=== PATIENT | male | born 1985 | race Caucasian/White ===

== ENCOUNTER 2016-06-01 21:16 | Emergency (ER) | payer OTHER, MEDICARE ==
[~2016-06-01] VITALS: Ht 190.5 cm; Wt 156.5 kg
[~2016-06-01 21:16] MED LIST: ABILIFY 10 MG10 MG; ABILIFY 5MG5 MG; COLACE100 MG PO; ZOFRAN ODT4 MG PO; ZYPREXA10 MG PO
[2016-06-01 22:12] LABS: ABSOLUTE BASOPHIL COUNT 0.1 /CUMM (0.0-0.2); ABSOLUTE EOSINOPHIL COUNT 0.1 /CUMM (0.0-0.7); ABSOLUTE GRANULOCYTE CT 10.7 /CUMM (1.4-6.5); ABSOLUTE LYMPH COUNT 2.9 /CUMM (1.2-3.4); ABSOLUTE MONOCYTE COUNT 0.9 /CUMM (0.10-0.60); BASOPHIL % 0.6 % (0.0-2.0); EOSINOPHIL % 0.6 % (0-5); GRANULOCYTE % 73.1 % (42.2-75.2); MEAN CORPUSCULAR HGB 28.6 PG (27.0-31.0); MEAN CORPUSCULAR VOLUME 84.1 FL (80.0-94.0); MEAN PLATELET VOLUME 7.6 FL (7.4-10.4); PLATELET COUNT 276 /CUMM (130-400); RBC DISTRIBUTION WIDTH 13.1 % (11.5-14.5); RED BLOOD CELL CT 5.82 /CUMM (4.70-6.10); WHITE BLOOD CELL COUNT 14.6 /CUMM (4.8-10.8)
--- NOTE | 2016-06-01 22:32 | ED GI/GU/ABDOMINAL COMPLAINT ---
See Addendum History of Present Illness General Chief Complaint: General Adult Stated Complaint: N/V, UNABLE TO TAKE ANY DAILY MEDS Source: patient Exam Limitations: no limitations Vital Signs & Intake/Output Vital Signs & Intake/Output Vital Signs Date Time Temp Pulse Resp B/P Pulse O2 O2 Flow FiO2 Ox Delivery Rate 06/02 1209 97.0 63 18 152/79 98 Room Air 06/02 0943 97.0 84 20 157/80 100 Room Air 06/02 0504 97.9 75 16 162/99 97 Room Air 06/01 2344 100.2 74 20 137/72 99 Room Air 06/01 2132 99.1 90 20 142/89 98 Room Air ED Intake and Output 06/02 0000 06/01 1200 Intake Total Output Total Balance Patient 345 lb Weight Allergies Coded Allergies: cefaclor (From CECLOR) (Mild, RASH 06/01/16) divalproex sodium (From DEPAKOTE) ("PANCREATITIS" 06/01/16) Reconcile Medications Aripiprazole (Abilify) (Unknown Strength) TAB (Unknown Dose) UNKNOWN ( Reported) Aripiprazole (Abilify) (Unknown Strength) TAB (Unknown Dose) UNKNOWN ( Reported) Docusate Sodium (Colace) 100 MG SGL 1 CAP PO BID CONSTIPATION Olanzapine (Zyprexa) 10 MG TAB 1 TAB PO BID SCHIZOAFFECTIVE Ondansetron (Zofran Odt) 4 MG ODT 1 TAB PO Q8P PRN NAUSEA Triage Note: TRIAGE: PT TO ER WITH MOTHER C/C N/V SINCE MONDAY. HAS NOT BEEN ABLE TO TAKE REGULAR MEDICATIONS SINCE MONDAY FOR BIPOLAR, SCHIZOAFFECTIVE D/O AND DIABETES. HAS TOLERATED SOME WATER AND GATORADE BUT HAS NOT TOLERATED ANY SOLIDS. F/S 135 AT 18:[address]W DR WILEY TODAY. Triage Nurses Notes Reviewed? yes Onset: Abrupt Duration: day(s): (4-5), constant, continues in ED Timing: recent history Quality/Severity: moderate No Modifying Factors: none HPI: 31-year-old male comes into the emergency room for further evaluation of nausea vomiting has been going on for the past 4-5 days. Patient reports that since she's been vomiting. Some mild abdominal pain. Denies any urinary symptoms. Patient reports she is diabetic and hasn't taken his medication because he's been vomiting. Denies any changes in bowel movement. Nothing seems to make symptoms better or worse. (NESTOR FOREMAN) Past History Travel History Traveled to [place] past 21 day No Medical History Any Pertinent Medical History? see below for history Neurological: NONE EENT: NONE Cardiovascular: NONE Respiratory: NONE Gastrointestinal: NONE Hepatic: NONE Renal: NONE Musculoskeletal: NONE Psychiatric: bipolar disease, schizophrenia Endocrine: diabetes, diabetic ketoacidosis Blood Disorders: NONE Cancer(s): TESTICULAR CANCER EXTENSION AGENT/Reproductive: NONE Surgical History Surgical History: non-contributory Psychosocial History Who do you live with Patient/Self Services at Home NONE What is your primary language Japanese Tobacco Use: Quit >30 days ago ETOH Use: denies use Illicit Drug Use: marijuana Family History Hx Contributory? No (NESTOR FOREMAN) Review of Systems Review of Systems Constitutional: Reports: no symptoms. EENTM: Reports: no symptoms. Respiratory: Reports: no symptoms. Cardiovascular: Reports: no symptoms. GI: Reports: see HPI. Genitourinary: Reports: no symptoms. Musculoskeletal: Reports: no symptoms. Skin: Reports: no symptoms. Neurological/Psychological: Reports: no symptoms. Hematologic/Endocrine: Reports: no symptoms. Immunologic/Allergic: Reports: no symptoms. All Other Systems: Reviewed and Negative (NESTOR FOREMAN) Physical Exam Physical Exam General Appearance: well developed/nourished, no apparent distress, alert Head: atraumatic, normal appearance Eyes: Bilateral: normal appearance. Ears, Nose, Throat, Mouth: hearing grossly normal, moist mucous membrane Neck: normal inspection, full range of motion Respiratory: normal breath sounds, no respiratory distress Cardiovascular: regular rate/rhythm Gastrointestinal: soft, tenderness (mild RUQ) Back: normal inspection Extremities: normal range of motion Neurologic/Psych: awake, alert, oriented x 3, normal gait, FLAT AFFECT Skin: intact, normal color Core Measures ACS in differential dx? No Severe Sepsis Present: No Septic Shock Present: No (NESTOR FOREMAN) Physical Exam Gastrointestinal: tenderness (MERLINE LEWIS,MIKE Linares) Progress Differential Diagnosis: appendicitis, biliary colic, bowel obstruction, cholecystitis, diverticulitis, gastritis, hepatitis, pancreatitis, prostatitis, peptic ulcer, perforated viscous, pyelonephritis, urinary retention, urethritis, UTI/pyelo Plan of Care: Orders Procedure Date/time Status Regular Diet 06/02 B Active URINE DRUG SCREEN FOR ER ONLY 06/02 0151 Complete ED CRISIS PSYCH CONSULT 06/02 0016 Active Add-on Test (ER Only) 06/02 2303 Active LIPASE 06/02 2203 Complete AMYLASE 06/02 2203 Complete COMPREHENSIVE METABOLIC PANEL 06/02 2143 Complete CBC WITHOUT DIFFERENTIAL 06/02 2143 Complete Laboratory Tests 06/02/16 0921: Urine Opiates Screen < 100.00, Methadone Screen 71, Barbiturate Screen 233 H, Ur Phencyclidine Scrn < 6.00, Amphetamines Screen < 100, U Benzodiazepines Scrn 125, Urine Cocaine Screen < 50, Urine Cannabis Screen > 80.00 H 06/01/162203: Anion Gap 16, Estimated GFR > 60, BUN/Creatinine Ratio 11.7, Glucose 103 H, Calcium 9.9, Total Bilirubin 0.8, AST 21, ALT 41, Alkaline Phosphatase 65, Total Protein 8.2, Albumin 5.1 H, Globulin 3.1, Albumin/Globulin Ratio 1.6, Amylase < 30 L, Lipase 81, CBC w Diff NO MAN DIFF REQ, RBC 5.82, MCV 84.1, MCH 28.6, RDW 13.1, MPV 7.6, Gran % 73.1, Lymphocytes % 19.7 L, Monocytes % 6.0, Eosinophils % 0.6, Basophils % 0.6, Absolute Granulocytes 10.7 H, Absolute Lymphocytes 2.9, Absolute Monocytes 0.9 H, Absolute Eosinophils 0.1, Absolute Basophils 0.1, PUBS MCHC 34.0 Diagnostic Imaging: Viewed by Me: CT Scan. Discussed w/RAD: CT Scan. Radiology Impression: EXAM TYPE: CAT - CT ABD & PELVIS W/O IV CONTRAS EXAMINATION: CT ABDOMEN AND PELVIS WITHOUT CONTRAST CLINICAL INFORMATION: Question cholecystitis. Right upper quadrant abdominal pain. Elevated white blood cell count. COMPARISON: CT scan of the abdomen and pelvis 06/01/2015. TECHNIQUE: Multidetector volumetric imaging was performed from the superior aspect of the liver through the pubic symphysis. Sagittal and coronal reformatted images were obtained on the technologist's workstation. DLP: 1597.88 mGy-cm FINDINGS: LUNG BASES: Lung bases are clear. There is no pleural or pericardial effusion. LIVER, GALLBLADDER, AND BILIARY TREE: The liver is normal in size, shape, and attenuation. No focal hepatic lesion or biliary ductal dilatation is present. Relatively hyperdense sludge layers within an otherwise unremarkable gallbladder. Grossly there is no evidence of intrahepatic or extrahepatic biliary ductal dilatation. PANCREAS: Unremarkable. SPLEEN: Unremarkable. ADRENAL GLANDS: Unremarkable. KIDNEYS AND URETERS: The kidneys are normal in size, shape, and attenuation. No hydronephrosis, hydroureter, or calculi seen. No perinephric stranding. BLADDER: Unremarkable. GASTROINTESTINAL TRACT: The small and large bowel are unremarkable. The appendix is unremarkable. ABDOMINAL WALL: No significant hernia is appreciated. LYMPH NODES: Normal. VASCULAR: The unenhanced abdominal aorta and inferior vena cava are unremarkable. PELVIC VISCERA: Unremarkable. OSSEOUS STRUCTURES: There is no worrisome lytic or blastic osseous lesion. A prominent central disc osteophyte complex at T10-T11 is redemonstrated causing indentation of the ventral thecal sac and at least moderate canal stenosis at this level. IMPRESSION: No abnormal finding to provide an explanation for the patient's right upper quadrant abdominal pain. There is hyperdense sludge layers within the gallbladder however there are no overt pericholecystic inflammatory changes. If there is a clinical concern for cholecystitis then a right upper quadrant ultrasound may provide better anatomic characterization. A prominent central disc osteophyte complex at T10-T11 is redemonstrated causing at least moderate canal stenosis at this level. If there is a clinical concern for compressive myelopathy then a dedicated thoracic spine MRI should be obtained. DICTATED BY: ERIN LEWIS,POOJA Barreto DATE/TIME DICTATED:06/01/162357 WOOL BRUSHER:RHONDA DATE/TIME TRANSCRIBED:06/01/162357 CONFIDENTIAL, DO NOT COPY WITHOUT APPROPRIATE AUTHORIZATION. <Electronically signed in Other Vendor System> Initial ED EKG: none Hand-Off Endorsed To: REJI NIXON MD Endorsed Time: 16 Pending: consult (CRISIS) (NESTOR FOREMAN) Comments: 07:00 pt signed out to me by dr nixon. 06/02/2016 12:07:51 PM medical evaluation is unrevealing as to the cause of the patient's symptoms. He has also been evaluated by crisis who feel he is stable for outpatient management. I have updated the patient and I'm awaiting tolerance of clear liquids prior to discharge. Plan antiemetic and GI referral. Follow-up as outlined by crisis. (MERLINE LEWIS,MIKE Linares) Departure Departure Condition: Stable Referrals: INEZ LEWIS,RALPH Vasquez (PCP/Family) Departure Forms: Customer Survey General Discharge Information (NESTOR FOREMAN) PA/TRAUMA SURGEON Co-Sign Statement Statement: ED Attending supervision documentation- [] I saw and evaluated the patient. I have also reviewed all the pertinent lab results and diagnostic results. I agree with the findings and the plan of care as documented in the PA's/TRAUMA SURGEON's documentation. [x] I have reviewed the ED Record and agree with the PA's/TRAUMA SURGEON's documentation. [] Additions or exceptions (if any) to the PAs/TRAUMA SURGEON's note and plan are summarized below: [] (ISAIAH LEWIS,REJI Mortesnen) Departure Disposition: HOME OR SELF CARE Clinical Impression Primary Impression: Nausea & vomiting Qualifiers: Vomiting type: unspecified Vomiting Intractability: non-intractable Qualified Code: R11.2 - Nausea with vomiting, unspecified Secondary Impressions: Abdominal pain Qualifiers: Abdominal location: generalized Qualified Code: R10.84 - Generalized abdominal pain Marijuana smoker Thoughts of violence Additional Instructions: Phenergan as needed for nausea or vomiting. Please call the GI specialist listed and arrange for follow-up appointment as soon as possible for further investigation of your nausea vomiting and abdominal pain. Notify your primary care doctor of this emergency department visit and treatment plan. Return if any concerns or sudden worsening. Please note that there might be incidental findings in your evaluation that are unrelated to the current emergency department visit. Please notify your primary care doctor about this emergency department visit in order to obtain and review all of the testing performed so that these incidental findings can be monitored as needed. If you had an x-ray performed, please understand that some fractures may not be seen on the initial set of x-rays. If your symptoms persist you might need a repeat set of x-rays to check for such a fracture. If you had a laceration evaluated, please understand that foreign bodies such as glass or wood may not be visible to the naked eye or on plain x-rays. If the wound becomes red, swollen, increasingly more painful or if there is any drainage from the wound, please have it reevaluated by a physician for the possibility of a retained foreign body. Thank you for choosing the [facility] Emergency Department for your care. It was a pleasure to serve you today. Mike Malcolm M.D. [facility] Prescriptions: Current Visit Scripts Promethazine HCl 1 TAB PO Q6P PRN NAUSEA/VOMITING #12 TAB Ranitidine HCl (Zantac) 1 TAB PO QPM #15 TAB (MERLINE LEWIS,MIKE Linares)
--- NOTE | 2016-06-02 00:06 | CT SCAN REPORT ---
EXAMINATION: CT ABDOMEN AND PELVIS WITHOUT CONTRAST CLINICAL INFORMATION: Question cholecystitis. Right upper quadrant abdominal pain. Elevated white blood cell count. COMPARISON: CT scan of the abdomen and pelvis 06/01/2015. TECHNIQUE: Multidetector volumetric imaging was performed from the superior aspect of the liver through the pubic symphysis. Sagittal and coronal reformatted images were obtained on the technologist's workstation. DLP: 1597.88 mGy-cm FINDINGS: LUNG BASES: Lung bases are clear. There is no pleural or pericardial effusion. LIVER, GALLBLADDER, AND BILIARY TREE: The liver is normal in size, shape, and attenuation. No focal hepatic lesion or biliary ductal dilatation is present. Relatively hyperdense sludge layers within an otherwise unremarkable gallbladder. Grossly there is no evidence of intrahepatic or extrahepatic biliary ductal dilatation. PANCREAS: Unremarkable. SPLEEN: Unremarkable. ADRENAL GLANDS: Unremarkable. KIDNEYS AND URETERS: The kidneys are normal in size, shape, and attenuation. No hydronephrosis, hydroureter, or calculi seen. No perinephric stranding. BLADDER: Unremarkable. GASTROINTESTINAL TRACT: The small and large bowel are unremarkable. The appendix is unremarkable. ABDOMINAL WALL: No significant hernia is appreciated. LYMPH NODES: Normal. VASCULAR: The unenhanced abdominal aorta and inferior vena cava are unremarkable. PELVIC VISCERA: Unremarkable. OSSEOUS STRUCTURES: There is no worrisome lytic or blastic osseous lesion. A prominent central disc osteophyte complex at T10-T11 is redemonstrated causing indentation of the ventral thecal sac and at least moderate canal stenosis at this level. IMPRESSION: No abnormal finding to provide an explanation for the patient's right upper quadrant abdominal pain. There is hyperdense sludge layers within the gallbladder however there are no overt pericholecystic inflammatory changes. If there is a clinical concern for cholecystitis then a right upper quadrant ultrasound may provide better anatomic characterization. A prominent central disc osteophyte complex at T10-T11 is redemonstrated causing at least moderate canal stenosis at this level. If there is a clinical concern for compressive myelopathy then a dedicated thoracic spine MRI should be obtained.
--- NOTE | 2016-06-02 09:14 | ED PSY CRISIS COLLATERAL NOTE ---
Collateral Note Collateral Note Family/Inform/Arvind Contacts: Rosi Farrell - mother : This handbook writer left a voicemail for collateral information. 9:10 AM Pt has not been eating since Monday. He stopped his medications the following day on Monday. She said the pt has gone to the ER at [address] for different medical dx's . Mom thinks he should be admitted medically as he won't eat. She is worried about his depression and thinks it's both medical and psychiatric. Mom reports the same symptoms happened a couple months ago, vomitting and was kept for stablization. Mom is unclear what his current medications are. Pt has been doing well, staying on top of his diabetes , no SI /HI. Rosi said it is the 2 year anniversary of his grandfathers 05/29 and is unclear if this is contributing to his functioning. Mom says he smokes cannabis occasionally . Mom is wondering about CT Scan last night and said he had a fever last night. Dr. Nita Machado- [facility] doctor Elizabeth -[phone]/ [phone]. This handbook writer left two voicemails 9:[address] [facility] [phone]: Bipolar problem is living alone and smoking cannabis. he is not taking any psych medications. mental Hard to tell if he is withdrawing from the medications. Dr. Montiel's concern is that he is non-compliant not taking psych and diabetes and G.I to see him and see what is going on.
--- NOTE | 2016-06-02 11:03 | ED PSYCH CRISIS CONSULTATION ---
Crisis Consult Basic Assessment Date of Consult: 06/02/16 Responsible Person/Accompanied By: Mark youssef Insurance Authorization: Insurance #1: Insurance name: MEDICARE A Phone number: Policy number: [id number] Group number: Authorization number: ED Provider: Patient's ED Provider: NESTOR FOREMAN Primary Care Physician: Patient's PCP: INEZ LEWIS,RALPH Vasquez PCP's Current Psychiatrist: Rhina Machado APRN Chief Complaint: General Adult Patient's Quote: " My stomach hurts." Present Illness: Pt is 31 yo SCM with schizoaffective-bipolar d/o and cannabis use d/o. He presents to the ED with nausea and vomitting. During crisis consultation the pt did not present with psychosis or significant symptoms of depression or anger. He was calm, appropriate and cooperative. Pt says he is anxious and "just wants to feel better." He said his non-compliance with medication is due to previous ER doc recommending he not take his medications on an empty stomach. Pt said he has struggled with nausea in the past. He denies SI/HI/ AVH at present. Pt says he is not depressed and just wants to feel better. UTOX is positive for cannabis. Pt reports daily use of cannabis and that he struggles "giving it up. " He currently lives alone and works M-F at [employer]. He has hx of non- compliance with his medications. he is seen OP by Mariam Machado APRN and Dr. Montiel, PCP. This ad copy writer provided education around cannabis use with pt and withdrawal symptoms. Pt was offered IOP treatment and he refused. Pt is medically cleared at this time and the E.D doctor has no concerns as they did a thorough work up. MD doctor will give G.I referral to the pt to rule out any medical, per the mom' s request. This ad copy writer provided detox resources and IOP services for the pt and made a referral to [facility] to encourage medication compliance. This ad copy writer consulted with Dr. Mcghee and pt does not meet criteria for inpatient admission. Recommendations for pt: IOP, VNA services referral, discontinuing cannabis use, avoid caffiene use, and follow up with his [employer]. Patient's Address: [address] [place] [address] Other Phone Number: Who Do You Live With? Patient/Self Family/Informants Interviewed: Rosi- mother Allergies - Coded Allergies: cefaclor (From CECLOR) (Mild, RASH 06/01/16) divalproex sodium (From DEPAKOTE) ("PANCREATITIS" 06/01/16) Current Medications - Scheduled Medications Docusate Sodium (Colace) 100 MG SGL 1 CAP PO BID CONSTIPATION #30 CAP Prescribed by KRIS LOZANO MD on 05/30/15 Olanzapine (Zyprexa) 10 MG TAB 1 TAB PO BID SCHIZOAFFECTIVE 30 Days Prescribed by FORTINO ALFORD MD on 06/03/15 Ranitidine HCl (Zantac) 300 MG TABLET 1 TAB PO QPM stomache acid #15 TAB Prescribed by RAMU RICK MD on 06/02/16 Scheduled PRN Medications Ondansetron (Zofran Odt) 4 MG ODT 1 TAB PO Q8P PRN NAUSEA #12 ODT Prescribed by KRIS LOZANO MD on 05/30/15 Promethazine HCl 25 MG TABLET 1 TAB PO Q6P PRN NAUSEA/VOMITING #12 TAB Prescribed by RAMU RICK MD on 06/02/16 Miscellaneous Medications Aripiprazole (Abilify) (Unknown Strength) TAB (Unknown Dose) UNKNOWN #30 ( Reported) Entered as Reported by ROYCE FARR on 05/30/152214 Aripiprazole (Abilify) (Unknown Strength) TAB (Unknown Dose) UNKNOWN #30 ( Reported) Entered as Reported by ROYCE FARR on 05/30/152215 Past History Past Medical History Neurological: NONE EENT: NONE Cardiovascular: NONE Respiratory: NONE Gastrointestinal: NONE Hepatic: NONE Renal: NONE Musculoskeletal: NONE Psychiatric: bipolar disease, schizophrenia Endocrine: diabetes, diabetic ketoacidosis Blood Disorders: NONE Cancer(s): 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: NONE Past Surgical History Surgical History: non-contributory Psychosocial History Strengths/Capabilities: supportive family, engaged in out pt tx, employed at [employer] Physical Limitations (Interventions): none reported Psychiatric Treatment History Psych Treatment Psychiatric Treatment Yes Inpatient Treatment Yes Outpatient Treatment Yes Location of Treatment [facility] Diagnosis by History: Schizophrenia, Bipolar, Schizoaffective Substance Use/Abuse History Drug Use/Abuse Substances Used/Abused Yes Substance Used/Abused Marijuana First Use 15 yo Last Used a few days ago How much used/taken can't recall How often daily For how long pt uses recreationally Route of use smoke Substance Abuse Treatment Substance Abuse Treatment Past Substance Abuse TX Yes Inpatient Treatment No Outpatient Treatment Yes Location of Treatment [facility] Reason for Treatment Mental health and cannabis use Dates of Treatment 2016 Response to Treatment poor Current Mental Status Mental Status Orientation: Person, Place, Situation Affect: Anxious, WNL Speech: Soft, WNL Neuro-vegetative: Appetite Decreased, WNL Appearance Appearance- Dress/Hygiene: Pt is dressed in [facility] gown. Hygiene is fair. Behaviors Thought Process: WNL Thought Content: WNL Memory: WNL Insight: Fair SI/HI Risk Assessment Past Suicidal Ideation/Attempts No Current Suicidal Ideation/Att No Past Homicidal Ideation/Att: No Current Homicidal Ideation/Attempts No Degree of Intent: None Risk Factors: high anxiety/distress, lives alone, male Lethality Ratin (mild) PTSD Checklist PTSD Done? pt unable to participate ED Management Sitter: Yes Restraints: No DSM5/PS Stressors/Medical Prob Diagnosis' (DSM 5, Stressors, Medical): F25.0 schizoaffective d/o - bipolar type medical:diabetes psychosocial:limited social supports, education Current GAF: 38 Comments: Pt refused IOP level of care that is recommended for his cannabis use and mental health. Pt is agreeable to VNA services and will follow up with detox facilities. Departure Disposition Psych Medical Clearance Date: 06/02/16 Medically Cleared at: 0936 Time Started: 0945 Time Ended: 1040 Psychiatrist Consulted: Chapo Mcghee MD Date Disposition Established: 06/02/16 Time Disposition Established: 1045 Plan for Disposition - Modality: Visiting Nurse Referral, G.I specialist referral Facility: Patient to Arrange Rationale for Disposition: Pt denies SI/HI/AVH and symptoms of depression. He says has anxiety because he wants his stomach to feel better, which is why he is not taking his medications. The pt is medically and psychiatrically stable at this time. A thorough work up was completed and the pt is eating solid food. Clinician offered IOP referral for cannabis use and pt declined. Clincian discussed psychoeducation around cannabis use. Pt is agreeable to VNA services for medication compliance and list of detox facilities for substance abuse resources. Additional Instructions: Pt verbalized safety plan (211 or nearest ED) if he feels unsafe. Pt was given recommendation to avoid cannabis use and caffiene intake. He said he will take his medications as prescribed and follow up with a G.I specialist. This ad copy writer gave [facility] the pt's referral information and will they will contact pt for availability. Referrals INEZ LEWIS,RALPH Vasquez (PCP/Family)
[2016-06-02 12:09] VITALS: BP 152/79
[2016-06-02] MEDS ORDERED: ZANTAC300 MG PO (12:12)
[2016-06-02] MEDS ORDERED: PROMETHAZINE HC25 M3 PO (12:12)
== END 2016-06-02 12:40 ==
LOC: ERH 21:16
PROVIDERS: Emergency Medicine
DX: R11.2 Nausea with vomiting, unspecified (principal); R10.9 Unspecified abdominal pain; F12.10 Cannabis abuse, uncomplicated; R45.850 Homicidal ideations
CPT/HCPCS: 74176; 80307; 96374; 96375; 96376; G0463; J2405; J2550